=== PATIENT | female | born 1945 | race Caucasian/White ===

== ENCOUNTER 2018-04-10 16:50 | Inpatient (IN) | payer MEDICARE ==
[2018-04-10 17:41] LABS: #Lymphocytes 0.3 thou/uL (1.20-3.40); #Monocytes 0.3 thou/uL (0.11-0.59); #Neutrophils 9.1 thou/uL (1.40-6.50); %Basophils 0.1 % (0.0-1.0); %Eosinophils 0.2 % (0.0-10.0); %Lymphocytes 3.4 % (21.0-51.0); %Monocytes 2.9 % (0.0-10.0); %Neutrophils 93.5 % (42.0-75.0); Hemoglobin 11.2 g/dL (12.0-16.0); Mean Corpuscular HGB CONC 32.7 g/dL (32.0-36.0); Mean Corpuscular Hemoglobin 31.9 pg (27.0-31.0); Mean Corpuscular Volume 97.6 fL (78.0-98.0); Mean Platelet Volume 8.5 fL (7.4-10.4); Platelet Count 154 thou/uL (130-400); RBC Distribution Width 13.5 % (11.5-14.5); Red Blood Cell (RBC) Count 3.52 mill/uL (4.20-5.40); White Blood Cell (WBC) Count 9.8 thou/uL (4.8-10.8)
[2018-04-10] MEDS ORDERED: Ondansetron HCl/PF 4 MG/2 ML Vial ONE (17:46)
[2018-04-10 18:06] LABS: ALT (SGPT) 21 U/L (8-55); AST (SGOT) 36 U/L (5-34); Albumin 3.4 g/dL (3.4-4.8); Alkaline Phosphatase 81 U/L (40-150); Anion Gap 20 mmol/L (10-20); BUN (Urea Nitrogen) 39 mg/dL (9.8-20.1); Bilirubin, Total 0.4 mg/dL (0.2-1.2); Calc. Creatinine Clearance 0 mL/min (70-130); Calcium 7.7 mg/dL (7.8-10.44); Carbon Dioxide 15 mmol/L (23-31); Chloride 107 mmol/L (98-107); Estimated GFR-MDRD 26; Globulin 1.9 g/dL (2.4-3.5); Glucose 120 mg/dL (80-115); Protein, Total 5.3 g/dL (6.0-8.3); Sodium 138 mmol/L (136-145)
[2018-04-10 18:11] LABS: CKMB 3.1 ng/mL (0-6.6); Troponin I Less than 0.010 ng/mL (< 0.028)
--- NOTE | 2018-04-10 19:55 | CT ---
NONCONTRAST ABDOMEN AND PELVIC CT: 04/10/18 Reference made to an 07/10/16. INDICATION: Abdominal pain with hypotension. FINDINGS: There is a moderate sized ventral abdominal wall hernia, developing since prior exam, which contains unopacified bowel with a relative wide neck. There is mesenteric edema of the herniated fat. Hernia i s located just cephalad to the level of the level of the umbilicus at and to the left of midline. Denise id abdominal organs, bowel, lymph nodes, vasculature are limited in assessment on the basis of noncon trast technique. Evidence of prior cholecystectomy. Redemonstration of dystrophic parenchymal calcifi cation of the left kidney and granulomatous calcification of the spleen. No free air. Scattered vascu lar disease is present. There is curvilinear density at the distal colon, of the pelvis, indicating a nastomotic suture line. Correlate with surgical history. Bibasilar atelectasis is present. There is s urgical fixation of the lumbosacral spine, with scattered osseous degenerative change present, region ally. IMPRESSION: Moderate sized, relatively wide necked hernia, just cephalad to the umbilicus, at and to the left of midline containing unopacified bowel and edematous mesenteric fat. Recommend surgical consultation. POS: [facility]
[2018-04-10 20:27] LABS: Lactic Acid 2.1 mmol/L (0.5-2.2)
[2018-04-10] MEDS ORDERED: Acetaminophen 325 MG TAB PO PRN (23:35)
[2018-04-10] MEDS ORDERED: cefTRIAXone\\ROCEPHIN 1 GM in Sodium Chloride 0.9% 100 ML IVPB SCH (23:45)
[2018-04-11] MEDS: Sodium Chloride 0.9% 1,000 ML IV SCH ×2 (01:16→08:36)
[2018-04-11 01:29] VITALS: BMI 31.6
[2018-04-11 04:08] LABS: #Lymphocytes 0.6 thou/uL (1.20-3.40); #Monocytes 0.8 thou/uL (0.11-0.59); #Neutrophils 5.8 thou/uL (1.40-6.50); %Basophils 0.2 % (0.0-1.0); %Eosinophils 0.2 % (0.0-10.0); %Lymphocytes 8.9 % (21.0-51.0); %Monocytes 10.7 % (0.0-10.0); Hemoglobin 10.2 g/dL (12.0-16.0); Mean Corpuscular HGB CONC 32.7 g/dL (32.0-36.0); Mean Corpuscular Hemoglobin 31.9 pg (27.0-31.0); Mean Corpuscular Volume 97.7 fL (78.0-98.0); Mean Platelet Volume 8.3 fL (7.4-10.4); Platelet Count 123 thou/uL (130-400); RBC Distribution Width 13.3 % (11.5-14.5); Red Blood Cell (RBC) Count 3.21 mill/uL (4.20-5.40); White Blood Cell (WBC) Count 7.2 thou/uL (4.8-10.8)
[2018-04-11 04:35] LABS: Anion Gap 10 mmol/L (10-20); BUN (Urea Nitrogen) 40 mg/dL (9.8-20.1); Calc. Creatinine Clearance 62 mL/min (70-130); Calcium 7.2 mg/dL (7.8-10.44); Carbon Dioxide 20 mmol/L (23-31); Chloride 112 mmol/L (98-107); Estimated GFR-MDRD 46; Glucose 100 mg/dL (80-115); Potassium 3.4 mmol/L (3.5-5.1); Sodium 139 mmol/L (136-145)
[2018-04-11] MEDS ORDERED: metroNIDAZOLE 500 MG in Premix Bag 1 BAG IVPB SCH (06:00)
[2018-04-11] MEDS ORDERED: Levothyroxine Sodium 88 MCG TAB PO SCH (06:00)
[2018-04-11] MEDS ORDERED: Enoxaparin Sodium 30 MG/0.3 ML SYRINGE SC SCH (09:00)
[2018-04-11] MEDS ORDERED: Aripiprazole 10 MG TAB PO SCH (09:00)
--- NOTE | 2018-04-11 09:00 | HP ---
PRIMARY CARE PHYSICIAN: Dr. Gavin Ayala. CODE STATUS: FULL CODE. TIME OF EVALUATION: 8:30 p.m. CHIEF COMPLAINT: Abdominal pain. HISTORY OF PRESENT ILLNESS: This is a 72-year-old female patient with a past medical history of colo n cancer, hypothyroidism, hypertension who came to the hospital after having severe and numerous epis odes of diarrhea, with some abdominal cramps, she was diaphoretic, she was found to be hypotensive, s he had dry mouth, no clear triggers, no alleviating factors, the patient reported that she was feelin g well earlier this morning and has no idea what caused the symptoms. We gave 5 liter bolus and bloo d pressure was starting to improve, but the patient has had again large amounts of diarrhea. REVIEW OF SYSTEMS: Constitutional: No fever or chills. The patient does have generalized weakness. Respiratory: No cough, sputum production, shortness of breath. Cardiovascular: No chest pain, pa lpitations, shortness of breath. Gastrointestinal: The patient had nausea, no vomiting, large amoun t of diarrhea, abdominal cramping. Central Nervous System: No dizziness, headache or feeling lighth eaded. Genitourinary: No burning on urination. Extremities: No leg swelling. All other systems w ere reviewed and negative except for the findings mentioned above. PAST MEDICAL HISTORY: Positive for colon cancer, hernia, endocrine disease, hypothyroidism, hyperten alaina. PAST SURGICAL HISTORY: Hysterectomy, gastric bypass, left hand surgery, left knee. PSYCHIATRIC HISTORY: Includes depression. SOCIAL HISTORY: No smoking history. No alcohol, no drugs. KNOWN ALLERGIES: No known drug allergies. REPORTED MEDICATIONS: Levothyroxine, lisinopril, amitriptyline, sertraline, Abilify, pantoprazole. PHYSICAL EXAMINATION: VITAL SIGNS: On presentation, blood pressure 65/41, with a heart rate 96, respiratory rate was 16. Pain was 4/10. Oxygen saturation 95. The blood pressure has recovered and has been in the 90s after 5 liter bolus. GENERAL APPEARANCE: Patient is alert, oriented, not in any acute distress. HEENT: Eyes: Normal conjunctivae. Very dry oral mucosa. Anicteric NECK: No JVD. RESPIRATORY: Bilateral air entry. No rales, no wheezing. Symmetric expansion. CARDIOVASCULAR: Normal rate, regular rhythm. No murmurs, no gallop, no edema. ABDOMEN: Soft, normal bowel sounds. MUSCULOSKELETAL: Baseline range of motion and strength. No tenderness. SKIN: Warm and intact. No pallor, no rash or redness. NEUROLOGIC: Baseline sensory. No evidence of any new focal weakness. Baseline speech. Cranial ner ve seems to be intact. PSYCHIATRIC: The patient is in a good mood. No anxiety, oriented. No optimal judgment. IMAGING: EKG was reviewed. The patient has normal sinus rhythm at a rate of 93, SC 150, QRS 88, QT corrected 477. Abdomen and pelvis CT was done, moderate size, relatively wide neck hernia just cepha lad to the umbilicus into the left of midline complaining unopacified bowel and edematous mesenteric fat, recommend surgical consultation. LABORATORY DATA: Reviewed. The patient has a white count 9.8, hemoglobin 11.2, MCV 97, platelet cou nt was normal. Chemistry: Sodium 138, potassium 4.0, chloride 107, carbon dioxide was 15 with a nor mal gap. BUN 39 with a creatinine of 1.88, which has improved after hydration to 1.16. GFR 26, gluc ose 120. Lactic acid within normal twice. Calcium 7.7. AST 36. ASSESSMENT AND PLAN: The patient will be placed in the hospital for the following medical problems. 1. Severe dehydration. Patient has very dry mucosa, hypotension, has had some very large diarrhea m ultiple times during the day, unclear etiology, we will continue to hydrate aggressively. The patien t feels much better after radiation, blood pressure was recovered. 2. Acute gastroenteritis, unclear etiology, the patient has been started on antibiotics, we will con tinue to hydrate aggressively. 3. Umbilical hernia, seems to have some edematous mesenteric fat, Surgery has been consulted, Dr. Yoder will help us with our patient, we appreciate his help, we will follow recommendations. 4. Hypotension secondary to dehydration. The patient was hypovolemic on presentation, has recovered with aggressive hydration. 5. Deep venous thrombosis prophylaxis. 6. Hypothyroidism, continue hormone replacement. 7. Hypertension, we will reconcile home medications, we will not treat aggressively given presentati on with hypotension.
[2018-04-11 11:08] VITALS: TEMP 98.1
[2018-04-11] MEDS ORDERED: Potassium Chloride 20 MEQ TAB PO SCH (11:15)
--- NOTE | 2018-04-11 11:30 | DIS ---
DATE OF ADMISSION: 04/10/2018 DATE OF DISCHARGE: 04/11/2018 PRIMARY CARE PROVIDER: Gavin Ayala M.D. DISCHARGE DIAGNOSES: 1. Hypotension. 2. Severe dehydration. 3. Acute gastroenteritis. 4. Umbilical hernia. 5. Acute renal failure. CONDITION OF PATIENT ON THE DAY OF DISCHARGE: Stable. I assessed Ms. Baker on the day of disch arge. She denies any chest pain or shortness of breath. She denies any lightheadedness. She denies any abdominal pain. Vital signs are stable. S1 and S2 are heard, regular. Lungs are clear to ausc ultation bilaterally. DISCHARGE MEDICATIONS: Azithromycin 500 mg daily for 3 days, Tylenol #3 p.r.n., amitriptyline 100 mg at bedtime, Abilify 5 mg in the morning, levothyroxine 88 mcg daily, lisinopril 20 mg daily, Protoni x 40 mg daily and Zoloft 100 mg daily. HOSPITAL COURSE: Ms. Baker is a pleasant 72-year-old lady who was admitted to [facility] on 04/10/2018. Please refer to Dr. Kang's history and physical note dated 04/11 for further details regarding this admission. She received aggressive intravenous hydration fo r hypotension. She was also started on empiric antibiotics for suspected infectious diarrhea. Her b lood pressure improved. Creatinine improved to 1.16 on the day of discharge from 1.88 on the day of admission. Stool occult blood was negative. Clostridium difficile test was negative. Campylobacter antigen and Shiga toxin test were negative. She also had a rapid parasite screen, which was negativ e for Giardia antigen and cryptosporidium antigen. She was seen by General Surgery Service. This was in regards to her umbilical hernia. No surgery wa s recommended. She is being discharged home in a stable condition. She has been advised to follow u p with her primary care provider in 3-5 days. She is also advised to return to work as tolerated on 04/12/2018. Many thanks for allowing me to participate in your patient's care. Please feel free to contact me wi th any questions or concerns. LABORATORY DATA: On the day of discharge, she has sodium 139, potassium 3.4, which is being replaced , blood urea nitrogen 40, creatinine 1.16, for which she is advised to maintain good oral intake, whi te count 7,200, hemoglobin 10.2, and platelet count 123,000. DISCHARGE DESTINATION: Home. TOTAL AMOUNT OF TIME SPENT COORDINATING THIS DISCHARGE: 33 minutes.
[2018-04-11 12:19] VITALS: BP 139/67
--- NOTE | 2018-04-11 16:51 | HP ---
HISTORY OF PRESENT ILLNESS: Marita Baker is a 72-year-old female, who has had past Peña-en -Y gastric bypass, mesh repair of incisional hernia by Dr. Crowe. She was working at [employer] d experienced extreme weakness about 4-5 hours after taking lisinopril. After this event, she was tr ansported to the hospital, evaluated in the emergency room, noted to be hypotensive, pressure in the 70s to 80s. She is given fluids and admitted by Hospitalist ICU. She was noted to have an incisiona l hernia, which she has had for over a year. This is reducible. She has been followed by Dr. Reena raman for this. The hernia was reducible on exam and seen on CAT scan and not felt to be a problem and s he was admitted to the Hospitalist Service where she was hydrated. By the time I am seeing her, she is feeling better, hungry, never having had any nausea or vomiting. Her blood pressure is normal. I have discussed with Dr. Sagastume and he has felt that her symptoms were probably related to taking her lisinopril. She probably should discontinue this and follow up with her primary care physician as f ar as need for this medication or any other medications. MEDICATIONS: At home, sertraline 100 mg a.m., Protonix 40 mg a day, levothyroxine 88 mcg a day, azit hromycin 500 mg a day, Abilify 5 mg a.m., amitriptyline 10 mg at bedtime, Tylenol with Codeine p.r.n. TOBACCO/ALCOHOL: None. ALLERGIES: None. PAST SURGICAL HISTORY: ____, revision of her gastrojejunostomy for a perforated gastrojejunal ulcer. G-tube placement temporarily, subsequently removed. Upper endoscopies by Dr. Dowd. 09/2009, inci sional hernia repair with mesh 20 x 15 cm Porcine. 09/05/2009, laparoscopic cholecystectomy. 2015, Peña-en-Y gastric bypass, laparoscopic. Appendectomy, age 29. Removal of foot tumor and hyste rectomy. PAST MEDICAL HISTORY: Hypertension, depression, anxiety. REVIEW OF SYSTEMS: Ten-point noncontributory. SOCIAL HISTORY: Noncontributory. PHYSICAL EXAMINATION: VITAL SIGNS: 112/70, respiratory rate 20, afebrile, ____ degrees. HEAD, EARS, EYES, NOSE, AND THROAT: Unremarkable. LUNGS: Clear to auscultation. CARDIAC: Regular rate and rhythm without murmur, rub, or gallop. ABDOMEN: Soft. Supraumbilical incisional hernia midline, approximately 8 cm diameter defect, easily reducible, nontender. EXTREMITIES: Unremarkable. LABORATORY: White count 7, hemoglobin 10, sodium 139, potassium 3.4, BUN 40, creatinine 1.16. Liver function tests normal. ASSESSMENT AND PLAN: 1. Incisional hernia, asymptomatic. She has had this over a year. This is [facility]. We would not recommend intervention at this time. She will follow up with Dr. Crowe . 2. Recent episode of hypotension. I have discussed with Dr. Sagastume, probably related to lisinopril. She will hold her lisinopril. Follow up with her primary care physician and adjust her medications. 3. Bariatric surgery status. 4. Incisional hernia.
--- NOTE | 2018-04-11 20:36 | ADD-CON ---
DATE OF CONSULTATION: 04/11/2018 This is a 50-minute consult, greater than 50% of the time was spent in the unit coordinating care.
[2018-04-11] MEDS ORDERED: Amitriptyline HCl 100 MG TAB PO SCH (21:00)
--- NOTE | 2018-04-11 22:56 | CON ---
DATE OF CONSULTATION: 04/11/2018 HISTORY OF PRESENT ILLNESS: Marita Baker is a pleasant woman, who is 72 years of age. She said she was at work yesterday and became diaphoretic, felt like she was going to faint. The admission history and physical says she has had diarrhea prior to admission. She denies having nausea, vomiting or diarrhea prior to admission. In the emergency room, she had a low blood pressure. She was hydrated and says she feels back to normal now. She denies fever, chills or sweats. She took no new medicines. She does not use drugs. She did not accidentally take any extra blood pressure pills. She is on lisinopril 20 mg a day. She denies having fever or eating something different. She was admitted with a diagnosis of abdominal pain, but she denied having any significant pain to me. PAST MEDICAL HISTORY: Remarkable for colon cancer, hernia, hypothyroidism, hypertension, hysterectomy, gastric bypass surgery, hand surgery, and knee surgery. SOCIAL HISTORY: She is a nonsmoker, nondrinker, nondrug user. FAMILY HISTORY: Non contributory. ALLERGIES: She has no drug allergies. MEDICATIONS: Prior to admission, she was on Synthroid, lisinopril, Elavil, Zoloft, Abilify, and Protonix. REVIEW OF SYSTEMS: 10 point system review completed; otherwise negative. PHYSICAL EXAMINATION: GENERAL: She is in no distress. She actually said she was well and wanted to go home. VITAL SIGNS: She is afebrile, heart rate was 90, respiratory rate 18-20, oximetry is 100% on room air, and blood pressure 170/72. HEENT: Pupils are equal. Sclerae is anicteric. Extraocular movements are full. NECK: Supple, no lymphadenopathy. LUNGS: Completely clear. HEART: Regular rhythm, no S3. No gallop, no murmur. ABDOMEN: Soft and nontender. EXTREMITIES: She has a very large reducible ventral hernia, it is old by her history. EXTREMITIES: Without clubbing, cyanosis, or edema. NEUROLOGIC: Nonfocal. LABORATORY DATA: White count is normal, hemoglobin was 10.2, platelets 123,000. Sodium 139, potassium 3.4, chloride 112, bicarbonate 20, BUN 40, creatinine 1.16 , on admission. IMPRESSION: Intravascular volume depletion combined with the effects of her antihypertensive. Cultures of her blood were not done in the emergency room from what I can tell. Given that she felt normal. It is reasonable for her to be discharged and followed closely by her primary care physician. I did recommend that she not take her lisinopril. I also recommended that she vegetable picker a blood pressure cuff , to keep a dairy of her blood pressures twice a day and then follow up with her primary care physician within the next week to 10 days. PRIMARY CARE PHYSICIAN. She says that Dr. Ayala needed in the future. This is a 50 minute consult with greater than 50% of time spent on unit with coordination of care. YUDITH
== END 2018-04-11 13:38 | disposition home or self-care (01) | DRG 641 ==
LOC: ERS 16:50 → IMCU/EMU 21:30 → OBSVTOIN 21:30
PROVIDERS: ADMIT Hospitalist; ATTEND Hospitalist
DX: E86.0 Dehydration (principal); N17.9 Acute kidney failure, unspecified; I95.9 Hypotension, unspecified; K43.2 Incisional hernia without obstruction or gangrene; Z98.84 Bariatric surgery status; K52.9 Noninfective gastroenteritis and colitis, unspecified; K42.9 Umbilical hernia without obstruction or gangrene; E03.9 Hypothyroidism, unspecified
CPT/HCPCS: 36415; 74176; 80048; 80053; 82274; 82553; 83605; 84484; 85025; 87045; 87046; 87077; 87186; 87324; 87328; 87329; 87449; 87899; 93005; 96361; 96374; J0696; J1650; J2405; J7050

== ENCOUNTER 2018-08-19 09:35 | Inpatient (IN) | payer MEDICARE ==
[2018-08-18 08:50] VITALS: BMI 33.3
[2018-08-19] MEDS ORDERED: Fentanyl 100 MCG/2 ML VIAL ONE (10:17)
[2018-08-19] MEDS ORDERED: Midazolam HCl 2 mg/2 ml Vial ONE ×2 (10:17→12:05)
[2018-08-19] MEDS ORDERED: Dexamethasone 4 mg/ml Vial ONE (10:29)
[2018-08-19 11:18] LABS: Anion Gap 13 mmol/L (10-20); BUN (Urea Nitrogen) 20 mg/dL (9.8-20.1); Calc. Creatinine Clearance 88 mL/min (70-130); Calcium 9.3 mg/dL (7.8-10.44); Carbon Dioxide 27 mmol/L (23-31); Chloride 104 mmol/L (98-107); Estimated GFR-MDRD 67; Glucose 104 mg/dL (83-110); Potassium 3.8 mmol/L (3.5-5.1); Sodium 140 mmol/L (136-145)
[2018-08-19] MEDS ORDERED: CEFAZOLIN 2 GM/50 ML BAG ONE (11:49)
[2018-08-19] MEDS ORDERED: Fentanyl 250 MCG/5 ML VIAL ONE (12:08)
[2018-08-19] MEDS ORDERED: Ondansetron PF 4 MG/2 ML Vial IV PRN (13:18)
[2018-08-19] MEDS ORDERED: Fentanyl 100 MCG/2 ML VIAL SLOW IVP PRN (13:18)
[2018-08-19] MEDS ORDERED: Ondansetron PF 4 MG/2 ML Vial ONE ×2 (13:28→13:38)
[2018-08-19] MEDS ORDERED: PROPOFOL 200 MG/20 ML VIAL ONE (13:28)
[2018-08-19] MEDS ORDERED: Lidocaine 1% PF 5 ML VIAL ONE (13:28)
[2018-08-19] MEDS ORDERED: Ketorolac Tromethamine 30 MG/ML VIAL ONE ×2 (13:28→13:38)
[2018-08-19] MEDS ORDERED: Communication Order-Pharmacy FS SCH (13:30)
[2018-08-19] MEDS ORDERED: Promethazine HCl 25 MG/ML VIAL SLOW IVP PRN (13:50)
[2018-08-19] MEDS ORDERED: Ondansetron HCl/PF 4 MG/2 ML Vial IVP PRN (13:50)
[2018-08-19] MEDS ORDERED: Promethazine HCl 25 MG/ML VIAL IM PRN (13:50)
[2018-08-19] MEDS: HYDROcodone/Acetaminophen 5/325 mg Tablet PO PRN (15:30)
--- NOTE | 2018-08-19 15:59 | RAD ---
RADIOGRAPH LEFT ANKLE 2 VIEWS: 08/19/18 Attention Ashli in Billing: This is a two view study, not three view. HISTORY: 74-year-old male with traumatic ankle fracture. COMPARISON: 07/28/18. FINDINGS: Fluoroscopic spot images obtained with C-arm in the OR demonstrate interval placement of a metallic p late along the medial aspect of the distal tibial metaphysis, anchored to the bone by four screws. Al ignment remains anatomical. Ankle mortise remains congruent. IMPRESSION: Ongoing open reduction internal fixation of nondisplaced, acute, traumatic medial distal tibial metap hyseal fracture with intraarticular component of fracture. POS: [facility]
--- NOTE | 2018-08-19 16:54 | OP ---
DATE OF PROCEDURE: 08/19/2018 PROCEDURE PERFORMED: Open reduction and internal fixation of left medial malleolus ankle fracture. PREOPERATIVE DIAGNOSIS: Left medial malleolus ankle fracture with displacement. POSTOPERATIVE DIAGNOSIS: Left medial malleolus ankle fracture with displacement. COMPLICATIONS: None. ESTIMATED BLOOD LOSS: 50 mL. LUGGAGE REPAIRER: Cari Griggs PA-C. IMPLANTS: Synthes one-third tubular plate, 5 hole with multiple nonlocking screws were utilized. INDICATIONS: Ms. Mcmahon is a 73-year-old female, who fell several weeks ago. She initially had a nondisplaced medial malleolus fracture. Unfortunately, she had to bear weight on this for balance and this has become a displaced fracture. She was indicated for open reduction and internal fixation to restore alignment and promote healing. Risks have been reviewed in detail. She has elected to proceed with the operation. DESCRIPTION OF PROCEDURE: Ms. Griffith was identified in the preoperative holding area. Her correct extremity was marked. She was carried to the operating room. She was positioned supine. General anesthesia was induced. A multidisciplinary time-out was performed. The left lower extremity was prepped and draped in sterile fashion. We began the procedure with a medial approach to the medial malleolus. We dissected down through the subcutaneous tissues to the fascia, which was opened. We exposed the underlying fracture. At this point, the fracture was reduced using an elevator after cleaning the fracture and removing fibrocartilage. We checked reduction on x-ray after K-wire placement. We then applied a one-third tubular buttress plate. Two screws were placed proximally and two through the fragment. This reduced the fracture fragment well and held in its position. There were no complications. We took final images. We thoroughly irrigated. We then closed with 0 Vicryl suture, 2-0 Vicryl suture, prem for the skin, and a splint was placed. Job ID: [id number]
[2018-08-19] MEDS ORDERED: Bupivacaine HCl 0.5%/Epinephrine 1:200,000/PF 30 ml Vial ONE (19:14)
[2018-08-19] MEDS: Amitriptyline HCl 100 MG TAB PO SCH (20:57)
[2018-08-19] MEDS: CEFAZOLIN 2 GM/50 ML BAG IVPB SCH (20:58)
[2018-08-19] MEDS: Aspirin 81 mg Enteric Coated Tablet PO SCH (20:58)
[2018-08-20] MEDS: Levothyroxine Sodium 88 MCG TAB PO SCH (04:56)
[2018-08-20] MEDS: CEFAZOLIN 2 GM/50 ML BAG IVPB SCH (04:56)
[2018-08-20] MEDS ORDERED: Prevnar 13-Val Conj/PF 0.5 ML SYRINGE IM ONE (09:00)
[2018-08-20] MEDS: Aspirin 81 mg Enteric Coated Tablet PO SCH ×2 (09:23→20:46)
[2018-08-20] MEDS: Lisinopril 20 MG TAB PO SCH (09:23)
[2018-08-20] MEDS: Aripiprazole 10 MG TAB PO SCH (09:24)
[2018-08-20] MEDS: Multivit, Therapeutic 1 TAB PO SCH (09:24)
[2018-08-20] MEDS: HYDROcodone/Acetaminophen 5/325 mg Tablet PO PRN ×3 (09:25→20:46)
[2018-08-20] MEDS: traMADol HCl 50 MG TAB PO PRN ×2 (12:51→20:46)
[2018-08-20] MEDS: Amitriptyline HCl 100 MG TAB PO SCH (20:46)
[2018-08-21] MEDS: traMADol HCl 50 MG TAB PO PRN (03:28)
[2018-08-21] MEDS: HYDROcodone/Acetaminophen 5/325 mg Tablet PO PRN ×5 (03:28→21:07)
[2018-08-21] MEDS: Levothyroxine Sodium 88 MCG TAB PO SCH (06:07)
[2018-08-21] MEDS: Acetaminophen 325 MG TAB PO PRN (06:07)
[2018-08-21] MEDS: Aspirin 81 mg Enteric Coated Tablet PO SCH ×2 (08:38→20:16)
[2018-08-21] MEDS: Aripiprazole 10 MG TAB PO SCH (08:38)
[2018-08-21] MEDS: Lisinopril 20 MG TAB PO SCH (08:39)
[2018-08-21] MEDS: Multivit, Therapeutic 1 TAB PO SCH (08:39)
[2018-08-21] MEDS: Amitriptyline HCl 100 MG TAB PO SCH (20:17)
[2018-08-22] MEDS: HYDROcodone/Acetaminophen 5/325 mg Tablet PO PRN ×5 (04:15→21:06)
[2018-08-22] MEDS: Levothyroxine Sodium 88 MCG TAB PO SCH (05:51)
[2018-08-22] MEDS: Aspirin 81 mg Enteric Coated Tablet PO SCH ×2 (07:54→21:06)
[2018-08-22] MEDS: Lisinopril 20 MG TAB PO SCH (07:54)
[2018-08-22] MEDS: Multivit, Therapeutic 1 TAB PO SCH (07:55)
[2018-08-22] MEDS: Aripiprazole 10 MG TAB PO SCH (07:55)
[2018-08-22] MEDS: Amitriptyline HCl 100 MG TAB PO SCH (21:06)
[2018-08-23] MEDS: Levothyroxine Sodium 88 MCG TAB PO SCH (05:27)
[2018-08-23] MEDS: HYDROcodone/Acetaminophen 5/325 mg Tablet PO PRN ×5 (05:29→21:31)
[2018-08-23] MEDS: Aripiprazole 10 MG TAB PO SCH (07:51)
[2018-08-23] MEDS: Multivit, Therapeutic 1 TAB PO SCH (07:53)
[2018-08-23] MEDS: Lisinopril 20 MG TAB PO SCH (07:53)
[2018-08-23] MEDS: Aspirin 81 mg Enteric Coated Tablet PO SCH ×2 (07:53→21:31)
[2018-08-23] MEDS: Amitriptyline HCl 100 MG TAB PO SCH (21:31)
[2018-08-24] MEDS: Levothyroxine Sodium 88 MCG TAB PO SCH (05:06)
[2018-08-24] MEDS: HYDROcodone/Acetaminophen 5/325 mg Tablet PO PRN ×3 (05:06→14:42)
[2018-08-24 08:11] VITALS: TEMP 98.4
[2018-08-24] MEDS: Acetaminophen 325 MG TAB PO PRN ×2 (08:43→16:06)
[2018-08-24] MEDS: traMADol HCl 50 MG TAB PO PRN ×2 (08:43→16:07)
[2018-08-24] MEDS: Multivit, Therapeutic 1 TAB PO SCH (08:44)
[2018-08-24] MEDS: Aripiprazole 10 MG TAB PO SCH (08:44)
[2018-08-24] MEDS: Lisinopril 20 MG TAB PO SCH (08:44)
[2018-08-24] MEDS: Aspirin 81 mg Enteric Coated Tablet PO SCH (08:44)
[2018-08-24 12:16] VITALS: BP 127/84
== END 2018-08-24 16:15 | disposition home or self-care (01) | DRG 494 ==
LOC: SDC 09:35 → SURG B 13:18
PROVIDERS: ADMIT Orthopaedic Surgery; ATTEND Orthopaedic Surgery
PROC: 0QSH04Z Reposition Left Tibia with Internal Fixation Device, Open Approach (ICD-10-PCS; principal; 2018-08-19)
DX: S82.52XA Displaced fracture of medial malleolus of left tibia, initial encounter for closed fracture (principal); M19.90 Unspecified osteoarthritis, unspecified site; F32.9 Major depressive disorder, single episode, unspecified; W19.XXXA Unspecified fall, initial encounter; Y92.9 Unspecified place or not applicable; Z87.891 Personal history of nicotine dependence; Z85.038 Personal history of other malignant neoplasm of large intestine; Z98.84 Bariatric surgery status; Z96.653 Presence of artificial knee joint, bilateral; Z81.8 Family history of other mental and behavioral disorders; Z83.3 Family history of diabetes mellitus; Z82.49 Family history of ischemic heart disease and other diseases of the circulatory system; Z80.0 Family history of malignant neoplasm of digestive organs
CPT/HCPCS: 76001; 80048; 90471; 90670; C1713; G0009; G8978-GP-CL; G8979-GP-CJ; J0670; J1100; J1885; J2001; J2250; J2405; J2704; J3010

== ENCOUNTER 2018-11-05 13:03 | Outpatient (CLI) | payer MEDICARE ==
--- NOTE | 2018-11-05 15:20 | BD ---
DEXA BONE DENSITY STUDY: HISTORY: Postmenopausal. FINDINGS: BMD (g/mc2) T-SCORE RIGHT FEMORAL NECK 0.634 -1.9 TOTAL 0.881 -0.5 LEFT FEMORAL NECK 0.518 -3.0 TOTAL 0.866 -0.6 IMPRESSION: 1. Osteoporosis of the left femoral neck. 2. Osteopenia of the right femoral neck. POS: [facility]
== END 2018-11-05 13:04 | disposition home or self-care (01) ==
LOC: BICMAMMO 13:03
PROVIDERS: ATTEND Family Medicine
DX: Z78.0 Asymptomatic menopausal state (principal); M81.0 Age-related osteoporosis without current pathological fracture; M85.851 Other specified disorders of bone density and structure, right thigh
CPT/HCPCS: 77080

== ENCOUNTER 2019-01-04 05:58 | Outpatient (CLI) | payer MEDICARE ==
[2019-01-04 17:50] LABS: #Lymphocytes 1.4 thou/uL (1.20-3.40); #Monocytes 0.3 thou/uL (0.11-0.59); #Neutrophils 2.3 thou/uL (1.40-6.50); %Basophils 1.1 % (0.0-1.0); %Eosinophils 0.9 % (0.0-10.0); %Monocytes 8.3 % (0.0-10.0); %Neutrophils 55.7 % (42.0-75.0); Hemoglobin 11.9 g/dL (12.0-16.0); Mean Corpuscular HGB CONC 31.1 g/dL (32.0-36.0); Mean Corpuscular Hemoglobin 30.6 pg (27.0-31.0); Mean Corpuscular Volume 98.3 fL (78.0-98.0); Mean Platelet Volume 8.2 fL (7.4-10.4); Platelet Count 221 thou/uL (130-400); RBC Distribution Width 12.6 % (11.5-14.5); White Blood Cell (WBC) Count 4.1 thou/uL (4.8-10.8)
[2019-01-04 18:19] LABS: Anion Gap 14 mmol/L (10-20); BUN (Urea Nitrogen) 22 mg/dL (9.8-20.1); Calc. Creatinine Clearance 0 mL/min (70-130); Calcium 8.7 mg/dL (7.8-10.44); Carbon Dioxide 24 mmol/L (23-31); Chloride 105 mmol/L (98-107); Estimated GFR-MDRD 58; Glucose 92 mg/dL (83-110); Potassium 5.3 mmol/L (3.5-5.1); Sodium 138 mmol/L (136-145)
== END 2019-01-04 05:59 | disposition home or self-care (01) ==
LOC: LABBT 05:58
PROVIDERS: ATTEND Surgery
DX: Z01.818 Encounter for other preprocedural examination (principal); K43.2 Incisional hernia without obstruction or gangrene
CPT/HCPCS: 80048; 82607; 84425; 85025; 93005; 93010

== ENCOUNTER 2019-01-14 09:45 | Observation (INO) | payer MEDICARE ==
[2019-01-04 16:22] VITALS: BMI 33.3
[2019-01-14] MEDS ORDERED: Bupivacaine/Epinephrine 0.25% 30 ML VIAL ONE (11:12)
[2019-01-14] MEDS ORDERED: Fentanyl 100 MCG/2 ML VIAL ONE ×3 (11:31→13:55)
[2019-01-14] MEDS ORDERED: HYDROmorphone 2 MG/ML VIAL ONE (13:27)
[2019-01-14] MEDS ORDERED: Promethazine HCl 25 MG/ML VIAL ONE (13:32)
[2019-01-14] MEDS ORDERED: diphenhydrAMINE 50 MG/ML VIAL IM PRN ×2 (13:37→13:39)
[2019-01-14] MEDS ORDERED: Zolpidem Tartrate 5 MG TAB PO PRN ×2 (13:37→13:39)
[2019-01-14] MEDS ORDERED: Ondansetron PF 4 MG/2 ML Vial IVP PRN ×3 (13:37→13:46)
[2019-01-14] MEDS ORDERED: Ondansetron HCl/PF 4 MG/2 ML Vial IVP PRN (13:37)
[2019-01-14] MEDS ORDERED: HYDROmorphone 2 MG/ML VIAL SLOW IVP PRN (13:37)
[2019-01-14] MEDS ORDERED: diphenhydrAMINE 25 MG CAP PO PRN ×2 (13:37→13:39)
[2019-01-14] MEDS ORDERED: PACU-Morphine 4MG/ML VIAL SLOW IVP PRN (13:37)
[2019-01-14] MEDS ORDERED: diphenhydrAMINE 50 MG/ML VIAL IVP PRN ×2 (13:37→13:39)
[2019-01-14] MEDS ORDERED: Promethazine HCl 25 MG/ML VIAL SLOW IVP PRN (13:37)
[2019-01-14] MEDS ORDERED: Naloxone HCl 0.4 mg/ml Vial IV PRN ×2 (13:37→13:39)
[2019-01-14] MEDS ORDERED: Promethazine HCl 25 MG/ML VIAL IM PRN ×4 (13:37→13:46)
[2019-01-14] MEDS ORDERED: fentaNYL Citrate/PF 2,000 MCG in Sodium Chloride 0.9% 60 ML IV PRN (13:39)
[2019-01-14] MEDS ORDERED: Communication Order-Pharmacy FS SCH ×2 (13:45)
[2019-01-14] MEDS ORDERED: hydrALAZINE 20 MG/ML VIAL SLOW IVP PRN (13:46)
[2019-01-14] MEDS ORDERED: Dextrose 5% in Water 1,000 ML IV PRN (13:46)
[2019-01-14] MEDS ORDERED: Dextrose 50% Abboject 50 ML SYRINGE SLOW IVP PRN (13:46)
[2019-01-14] MEDS ORDERED: Dexamethasone 4 mg/ml Vial ONE (14:19)
[2019-01-14] MEDS: Sodium Chloride 0.9% 1,000 ML IV SCH (16:15)
[2019-01-14] MEDS ORDERED: Lidocaine 1% PF 5 ML VIAL ONE (17:20)
[2019-01-14] MEDS ORDERED: Glycopyrrolate 0.2 MG/ML 5 ML SYRINGE ONE (17:20)
[2019-01-14] MEDS ORDERED: PHENYLEPHRINE-NS 100 MCG/ML 10 ML SYRINGE ONE (17:20)
[2019-01-14] MEDS ORDERED: PROPOFOL 200 MG/20 ML VIAL ONE (17:20)
[2019-01-14] MEDS ORDERED: Rocuronium Bromide 10 MG/ML (10ML VIAL) ONE (17:20)
[2019-01-14] MEDS ORDERED: Dexamethasone 20 MG/5 ML VIAL ONE (17:20)
[2019-01-14] MEDS ORDERED: Ketorolac Tromethamine 30 MG/ML VIAL ONE (17:20)
[2019-01-14] MEDS ORDERED: ePHEDrine 50 MG/ML VIAL ONE (17:20)
[2019-01-14] MEDS ORDERED: Ondansetron PF 4 MG/2 ML Vial ONE (17:20)
--- NOTE | 2019-01-14 17:42 | OP ---
DATE OF PROCEDURE: 01/14/2019 PREOPERATIVE DIAGNOSIS: Large incisional hernia. POSTOPERATIVE DIAGNOSIS: Large incisional hernia. PROCEDURES PERFORMED: 1. Incisional hernia repair with mesh, Ventralex 10 x 15 cm. 2. Right and left component separation with localized muscle flap with local muscle transfer, placement of abdominal drain x2. ANESTHESIA: General. ESTIMATED BLOOD LOSS: 50 mL. COMPLICATIONS: None. DESCRIPTION OF PROCEDURE: The patient was taken to the operating room and laid supine on the operating room table. After general anesthetic was obtained, a Llanes was placed. The abdomen was prepped and draped in a sterile fashion. The previous midline incision was reopened. The wide scar was excised. Flaps were raised along the level of the fascia laterally, superior, and inferiorly. Lateral to the furthest edge of the bed, superior to the level of the rib, inferior to the groins right on top of the muscle. The hernia sac was entered very carefully and the hernia sac debrided at the level of the fascial defect. There was a greater than 6 cm fascial defect in the middle. There was a second small fascial defect up high near the xiphoid. A Ventralex ST small mesh was brought into the sterile field and placed in the upper hole and the small opening was able to be completely closed with this [address] It was sewn in place using Prolene's. Next, the component separation was performed by incising 1 cm lateral to the lateral edge of the rectus. The anterior fascia was opened superior to the rib inferior to the level of the groin. This allowed the bilateral rectus muscle to come back to midline without any tension. A 10 x 15 cm mesh was brought into the sterile field. It was laid in an oriented and a horizontal fashion to completely cover the hole on the back side with good overlap. It was sewn via transfascial sutures of Prolene to the posterior fascia. The anterior fascia was able to be approximated in the midline without any undue tension. Meticulous hemostasis was obtained. The wound was irrigated. Two 19 drains were brought out through stab incision, sewn in place using silk and connected to bulbs for postop drainage. The incisions irrigated. There was no ongoing bleeding. The wounds were closed using 3-0 Vicryl, 4-0 Monocryl, and Dermabond. The patient was sent to Recovery in stable condition. All instrument counts, needle counts, and lap counts were correct. Job ID: [id number]
[2019-01-14] MEDS: Amitriptyline HCl 100 MG TAB PO SCH (19:46)
[2019-01-14] MEDS: Acetaminophen 1,000 MG in Premix Bag 1 BAG IVPB SCH (19:48)
[2019-01-14] MEDS: Amlodipine 5 MG TAB PO SCH (23:43)
[2019-01-15] MEDS: Acetaminophen 1,000 MG in Premix Bag 1 BAG IVPB SCH ×2 (02:11→09:26)
[2019-01-15] MEDS: Levothyroxine Sodium 88 MCG TAB PO SCH (07:14)
[2019-01-15] MEDS: Sodium Chloride 0.9% 1,000 ML IV SCH ×2 (07:14→20:34)
[2019-01-15] MEDS: Lisinopril/Hydrochlorothiazide 20/25 mg Tablet PO SCH (09:18)
[2019-01-15] MEDS: Aripiprazole 10 MG TAB PO SCH (09:18)
[2019-01-15] MEDS: Acetaminophen 500 MG TAB PO SCH ×3 (12:04→23:09)
[2019-01-15] MEDS: Amitriptyline HCl 100 MG TAB PO SCH (20:33)
[2019-01-15] MEDS: Amlodipine 5 MG TAB PO SCH (20:35)
--- NOTE | 2019-01-15 23:40 | PRG ---
DATE OF SERVICE: 01/15/2019 SUBJECTIVE: This is a 73-year-old female, postop day #1 with large incisional hernia repair with mesh, right and left component separation with localization muscle flap with local muscle transfer and placement of abdominal drain x2. The patient had no overnight events. The patient remains on a fentanyl TRAFFIC WORKFORCE REPRESENTATIVE pump and pain is adequately controlled. The patient is passing gas and tolerating a full liquid diet. OBJECTIVE: VITAL SIGNS: Blood pressure 116/72, temperature 98.2, pulse 96, respirations 16, and SpO2 of on room air. GENERAL: The patient is awake and alert, in no distress. HEENT: Unremarkable. Mucous membranes are moist. RESPIRATORY: Equal chest rise and fall. No respiratory distress. CARDIOVASCULAR: Regular rate and rhythm. ABDOMEN: Soft and nondistended. Drains in place. NEUROLOGIC: No focal deficit. LABORATORY DATA: There are no labs to evaluate today. IMPRESSION: Postoperative day #1, large incisional hernia repair with mesh. PLAN: Continue full liquid diet and add Ensure. We will place a rehab screen. We will place the patient on p.o. pain medications and wean off TRAFFIC WORKFORCE REPRESENTATIVE. The patient was examined with Dr. Jimenez during morning rounds. Job ID: [id number]
[2019-01-16] MEDS: Acetaminophen 500 MG TAB PO SCH ×4 (05:14→21:02)
[2019-01-16] MEDS: Levothyroxine Sodium 88 MCG TAB PO SCH (05:45)
[2019-01-16] MEDS: Aripiprazole 10 MG TAB PO SCH (09:11)
[2019-01-16] MEDS: Lisinopril/Hydrochlorothiazide 20/25 mg Tablet PO SCH (09:11)
[2019-01-16] MEDS: Sodium Chloride 0.9% 1,000 ML IV SCH (09:12)
[2019-01-16] MEDS ORDERED: traMADol HCl 50 MG TAB PO PRN (10:31)
[2019-01-16] MEDS ORDERED: Cyclobenzaprine 10 MG TAB PO PRN (10:33)
[2019-01-16] MEDS ORDERED: Ibuprofen 600 MG TAB PO SCH ×2 (10:45→14:00)
[2019-01-16] MEDS ORDERED: traMADol HCl 50 MG TAB PO SCH ×2 (10:45→18:00)
[2019-01-16 11:15] LABS: Anion Gap 9 mmol/L (10-20); BUN (Urea Nitrogen) 15 mg/dL (9.8-20.1); Calc. Creatinine Clearance 91 mL/min (70-130); Calcium 8.4 mg/dL (7.8-10.44); Carbon Dioxide 27 mmol/L (23-31); Chloride 107 mmol/L (98-107); Estimated GFR-MDRD 70; Glucose 70 mg/dL (83-110); Potassium 4.1 mmol/L (3.5-5.1); Sodium 139 mmol/L (136-145)
[2019-01-16] MEDS ORDERED: Morphine 2 MG/ML SYRINGE SLOW IVP PRN (13:07)
[2019-01-16] MEDS ORDERED: HYDROcodone/Acetaminophen 7.5/325 mg Tablet PO PRN (13:51)
--- NOTE | 2019-01-16 13:57 | PRG ---
DATE OF SERVICE: 01/16/2019 SUBJECTIVE: This is a 73-year-old female, status post postop day #2 with large incisional hernia repair with mesh, right and left component separation with localization muscle flap and abdominal drains x2. The patient had no overnight events. The patient still has not had a bowel movement, but continues to pass gas. The patient has been tolerating a full liquid diet. The patient with good urinary output. OBJECTIVE: VITAL SIGNS: Temperature 98.4, respirations 14, heart rate 72, SpO2 95% on room air, blood pressure 109/72. GENERAL: The patient is awake, alert, in no distress. HEENT: Unremarkable. Mucous membranes are moist. RESPIRATORY: Equal chest rise and fall. No respiratory distress. CARDIOVASCULAR: Regular rate and rhythm. No pedal edema. ABDOMEN: Soft. Mildly tender. Nondistended. Incision healing. Abdominal drains x2 in place with serosanguineous fluid. NEUROLOGIC: No focal deficits. LABORATORY DATA: Sodium 139, potassium 4.1, chloride 107, CO2 of 27, anion gap 9, BUN 15, creatinine 0.81, estimated GFR 70, glucose 70, calcium 8.4. IMPRESSION: Postop day #2 large incisional hernia repair with mesh. PLAN: We will increase the patient to regular diet as tolerated. The patient is still pending rehab screen. We will discontinue the patient's APPLICATION SUPPORT INTERN fentanyl pump and increase the patient's p.o. pain regimen. The patient was examined with Dr. Jimenez this morning during rounds. We will place the patient on a scheduled bowel regimen. Job ID: [id number]
[2019-01-16] MEDS: HYDROcodone/Acetaminophen 7.5/325 mg Tablet PO PRN ×2 (14:14→20:10)
[2019-01-16] MEDS ORDERED: Gabapentin 300 MG CAP PO SCH (15:00)
[2019-01-16] MEDS: Senokot S 8.6-50 MG TAB PO SCH (20:04)
[2019-01-16] MEDS: Amlodipine 5 MG TAB PO SCH (20:05)
[2019-01-16] MEDS: Amitriptyline HCl 100 MG TAB PO SCH (20:05)
[2019-01-17] MEDS: HYDROcodone/Acetaminophen 7.5/325 mg Tablet PO PRN ×2 (05:09→09:15)
[2019-01-17] MEDS: Levothyroxine Sodium 88 MCG TAB PO SCH (05:10)
[2019-01-17] MEDS: Acetaminophen 500 MG TAB PO SCH ×2 (05:11→08:41)
[2019-01-17 08:00] VITALS: TEMP 98
[2019-01-17] MEDS: Aripiprazole 10 MG TAB PO SCH (08:24)
[2019-01-17] MEDS: Lisinopril/Hydrochlorothiazide 20/25 mg Tablet PO SCH (08:25)
[2019-01-17] MEDS: Senokot S 8.6-50 MG TAB PO SCH (08:25)
[2019-01-17] MEDS ORDERED: Polyethylene Glycol 3350 17 GM Packet PO SCH (09:00)
--- NOTE | 2019-01-17 09:51 | DIS ---
DATE OF ADMISSION: 01/14/2019 DATE OF DISCHARGE: 01/17/2019 ADMITTING DIAGNOSIS: Incisional hernia. DISCHARGE DIAGNOSIS: Incisional hernia. PROCEDURES: Component separation and incisional hernia repair with mesh by Dr. Crowe without complication. CONDITION ON DISCHARGE: Improved. STAFF: Abdiaziz Crowe MD HOSPITAL COURSE: The patient's postop course was she had lots of pain. She was initially on a DIRECTOR BANKING. This was weaned to oral pain medicine. On the day of discharge, she is doing better. Drain care has been instructed upon, and her pain is controlled on oral pain pills. She is discharged home. She will follow up with me in a week for drain removal. Job ID: [id number]
[2019-01-17 11:37] VITALS: BP 113/76
== END 2019-01-17 12:28 | disposition home or self-care (01) ==
LOC: SDC 09:45 → SURG A 16:15
PROVIDERS: ADMIT Surgery; ATTEND Surgery
PROC: 0WUF0JZ Supplement Abdominal Wall with Synthetic Substitute, Open Approach (ICD-10-PCS; principal; 2019-01-14)
PROC: 0KXL0Z6 Transfer Left Abdomen Muscle, Transverse Rectus Abdominis Myocutaneous Flap, Open Approach (ICD-10-PCS; 2019-01-14)
PROC: 0KXK0Z6 Transfer Right Abdomen Muscle, Transverse Rectus Abdominis Myocutaneous Flap, Open Approach (ICD-10-PCS; 2019-01-14)
DX: K43.2 Incisional hernia without obstruction or gangrene (principal); M19.90 Unspecified osteoarthritis, unspecified site; E07.9 Disorder of thyroid, unspecified; F32.9 Major depressive disorder, single episode, unspecified; Z79.899 Other long term (current) drug therapy; Z98.890 Other specified postprocedural states; Z79.83 Long term (current) use of bisphosphonates; Z98.84 Bariatric surgery status; Z90.49 Acquired absence of other specified parts of digestive tract; Z87.891 Personal history of nicotine dependence
CPT/HCPCS: 15756; 49560; 49568; 80048; 96361 ×3; 96365; 96366; 96376; 97116; 97139 ×3; G0378 ×2; J3010 ×2; 36415; J0131; J0690; J1100; J1170; J1885; J2001; J2405; J2550; J2704; J3490

== ENCOUNTER 2019-01-24 23:56 | Inpatient (IN) | payer MEDICARE ==
[2019-01-25 00:27] LABS: #Lymphocytes 0.6 thou/uL (1.20-3.40); #Monocytes 0.6 thou/uL (0.11-0.59); #Neutrophils 7.3 thou/uL (1.40-6.50); %Eosinophils 0.5 % (0.0-10.0); %Lymphocytes 6.9 % (21.0-51.0); %Monocytes 6.9 % (0.0-10.0); %Neutrophils 85.7 % (42.0-75.0); Hemoglobin 11.7 g/dL (12.0-16.0); Mean Corpuscular Hemoglobin 30.9 pg (27.0-31.0); Mean Corpuscular Volume 96.6 fL (78.0-98.0); Mean Platelet Volume 7.7 fL (7.4-10.4); Platelet Count 229 thou/uL (130-400); RBC Distribution Width 12.3 % (11.5-14.5); Red Blood Cell (RBC) Count 3.78 mill/uL (4.20-5.40); White Blood Cell (WBC) Count 8.5 thou/uL (4.8-10.8)
[2019-01-25 01:05] LABS: Bilirubin Negative (Negative); Blood, Urine Trace (Negative); Clarity CLEAR (Clear); Glucose, Urine (Dipstick) Negative (Negative); Leukocyte Moderate (Negative); Nitrite Positive (Negative); Protein, Urine (Dipstick) Negative (Neg-Trace); Specific Gravity, Urine 1.019 (1.002-1.036); Urobilinogen 0.2 mg/dL (0.2-1.0)
[2019-01-25 01:05] LABS: ALT (SGPT) 8 U/L (8-55); AST (SGOT) 14 U/L (5-34); Albumin 3.5 g/dL (3.4-4.8); Alkaline Phosphatase 126 U/L (40-150); Anion Gap 13 mmol/L (10-20); BUN (Urea Nitrogen) 20 mg/dL (9.8-20.1); Bilirubin, Total 0.4 mg/dL (0.2-1.2); Calc. Creatinine Clearance 0 mL/min (70-130); Calcium 8.7 mg/dL (7.8-10.44); Carbon Dioxide 25 mmol/L (23-31); Chloride 102 mmol/L (98-107); Estimated GFR-MDRD 55; Globulin 2.4 g/dL (2.4-3.5); Glucose 126 mg/dL (83-110); Potassium 3.9 mmol/L (3.5-5.1); Protein, Total 5.9 g/dL (6.0-8.3); Sodium 136 mmol/L (136-145)
[2019-01-25 01:06] LABS: Bacteria/HPF 4+ HPF (None Seen); Hyaline Casts/LPF 4-6 HYALINE CAST LPF (0-3 Hyaline); Pathc Cast-AUWi Flag 0.81 (0-2.49); RBC/HPF 0-3 HPF (0-3); Squamous Epithelial None Seen HPF (0-3); WBC/HPF 21-50 HPF (0-3)
[2019-01-25 03:49] VITALS: BMI 34.7
[2019-01-25] MEDS: Sodium Chloride 0.9% 1,000 ML IV SCH ×3 (06:19→21:11)
[2019-01-25] MEDS ORDERED: Cepastat Lozenges 1 LOZ PO PRN (07:09)
[2019-01-25] MEDS ORDERED: Bisacodyl 10 MG SUPP PR PRN (07:09)
[2019-01-25] MEDS ORDERED: Artificial Tears 18 DROP/0.9 ML EA EYE PRN (07:09)
[2019-01-25] MEDS ORDERED: Ondansetron PF 4 MG/2 ML Vial IVP PRN (07:09)
[2019-01-25] MEDS ORDERED: hydrALAZINE 20 MG/ML VIAL SLOW IVP PRN (07:09)
[2019-01-25] MEDS ORDERED: Senokot S 8.6-50 MG TAB PO PRN (07:09)
[2019-01-25] MEDS ORDERED: Loperamide HCl 2 MG CAP PO PRN (07:09)
[2019-01-25] MEDS ORDERED: Loratadine 10 MG TAB PO PRN (07:09)
[2019-01-25] MEDS ORDERED: Zolpidem Tartrate 5 MG TAB PO PRN (07:09)
[2019-01-25] MEDS ORDERED: Eucerin (Mineral Oil/Petrolatum,White) 30 gm Jar TOP PRN (07:09)
[2019-01-25] MEDS ORDERED: Sodium Chloride 0.65% Nasal 44 ML BOT EA NARE PRN (07:09)
[2019-01-25] MEDS ORDERED: HYDROcodone/Acetaminophen 5/325 mg Tablet PO PRN (07:09)
[2019-01-25] MEDS ORDERED: Calcium Carbonate 500 MG ChewTAB PO PRN (07:09)
[2019-01-25] MEDS ORDERED: Ondansetron ODT 4 MG TAB PO PRN (07:09)
[2019-01-25] MEDS ORDERED: Diabetic Tussin 200 MG/10 ML UDCUP PO PRN (07:09)
[2019-01-25] MEDS: cefTRIAXone\\ROCEPHIN 1 GM in Sodium Chloride 0.9% 100 ML IVPB SCH (07:44)
--- NOTE | 2019-01-25 08:02 | RAD ---
SINGLE VIEW CHEST: Date: 01/25/19 COMPARISON: 05/23/16. HISTORY: Fever. FINDINGS: Single view of the chest shows normal sized cardiomediastinal silhouette. Calcified granulomas projec t over both thoraces. There is no evidence of consolidation or pleural effusion. IMPRESSION: No evidence of acute cardiopulmonary disease. POS: [facility]
[2019-01-25] MEDS: Enoxaparin Sodium 40 MG/0.4 ML SYRINGE SC SCH (08:59)
[2019-01-25] MEDS: Aripiprazole 10 MG TAB PO SCH (08:59)
[2019-01-25] MEDS: Multivit, Therapeutic 1 TAB PO SCH (09:00)
[2019-01-25] MEDS ORDERED: CALCIUM CARB CITRATE PO SCH (09:00)
[2019-01-25] MEDS: Calcium Carbonate + Vit D 1 TAB PO SCH (09:00)
[2019-01-25] MEDS ORDERED: VIT D3 PO SCH (09:00)
[2019-01-25] MEDS ORDERED: Non-Formulary Item 1 EACH (Multivitamin [Daily Multiple Vitamin] 1 TAB) PO SCH (09:00)
--- NOTE | 2019-01-25 09:00 | CT ---
PRELIMINARY REPORT/[facility]/EMERGENTY AFTER-HOURS PROCEDURE CT Head Without Contrast EXAM DATE/TIME: 01/25/2019 12:21 AM CLINICAL HISTORY: 73 years old, female; Injury or trauma; Initial encounter; Abrasion; Patient HX: Er 8. Fall, abrassio n to forehead. TECHNIQUE: Imaging protocol: Axial computed tomography images of the head without contrast. COMPARISON: No relevant prior studies available. FINDINGS: Brain: No brain edema. No intracranial hemorrhage. Ventricles: Normal. No ventriculomegaly. Bones/joints: Unremarkable. No acute fracture. Sinuses: Visualized sinuses are unremarkable. No fluid levels. Mastoid air cells: Visualized mastoid air cells are well aerated. No mastoid effusion. Soft tissues: Small right frontal scalp contusion/laceration. IMPRESSION: No acute brain findings. Thank you for allowing us to participate in the care of your patient. Dictated and Authenticated by: Bret Tavarez MD 01/25/2019 12:50 AM Central Time ([place] & [place]) FINAL REPORT EMERGENCY AFTER HOURS CT BRAIN: Date: 01/25/19 FINDINGS/IMPRESSION: I agree with the findings and impression given in the preliminary report per [facility] physician. No evide nce of acute intracranial abnormality. POS: [facility]
[2019-01-25] MEDS: Levothyroxine Sodium 88 MCG TAB PO SCH (09:01)
--- NOTE | 2019-01-25 09:08 | PDOC.GSPN ---
Surgery Progress Note: Subj - Subjective Patient reports: pain well controlled Surgery Progress Note: Obj - Vital signs Vital signs: Vital Signs - Most Recent Temp Pulse Resp BP Pulse Ox 99 F 86 16 102/66 16 L 01/25/19 07:20 01/25/19 07:20 01/25/19 07:20 01/25/19 07:20 01/25/19 08:00 - Physical Exam General: no distress Cardiovascular: regular rate and rhythm Respiratory: clear to auscultation Abdomen: soft, appropriately tender Wound: healing well (Drains serosanguenous) Surgery Progress Note: Results - Labs Result Diagrams: 01/25/19 00:12 01/25/19 00:12 Lab results: Laboratory Results - last 24 hr 01/25/19 01/25/19 01/25/19 00:12 00:12 00:12 WBC 8.5 RBC 3.78 L Hgb 11.7 L Hct 36.5 MCV 96.6 MCH 30.9 MCHC 32.0 RDW 12.3 Plt Count 229 MPV 7.7 Neutrophils % 85.7 H Lymphocytes % 6.9 L Monocytes % 6.9 Eosinophils % 0.5 Basophils % 0.0 Neutrophils # 7.3 H Lymphocytes # 0.6 L Monocytes # 0.6 H Eosinophils # 0.0 Basophils # 0.0 Sodium Potassium Chloride Carbon Dioxide Anion Gap BUN Creatinine Estimated GFR (MDRD) Glucose Lactic Acid Calcium Total Bilirubin AST ALT Alkaline Phosphatase Creatine Kinase 97 Troponin I Less than 0.010 Serum Total Protein Albumin Globulin Albumin/Globulin Ratio Urine Color Urine Clarity Urine pH Ur Specific [place] Urine Protein Urine Glucose (UA) Urine Ketones Urine Blood Urine Nitrite Urine Bilirubin Urine Urobilinogen Ur Leukocyte Esterase Urine RBC Urine WBC Ur Squamous Epith Cells Urine Bacteria Hyaline Casts 01/25/19 01/25/19 01/25/19 00:12 00:12 00:52 WBC RBC Hgb Hct MCV MCH MCHC RDW Plt Count MPV Neutrophils % Lymphocytes % Monocytes % Eosinophils % Basophils % Neutrophils # Lymphocytes # Monocytes # Eosinophils # Basophils # Sodium 136 Potassium 3.9 Chloride 102 Carbon Dioxide 25 Anion Gap 13 BUN 20 Creatinine 0.99 Estimated GFR (MDRD) 55 Glucose 126 H Lactic Acid 0.8 Calcium 8.7 Total Bilirubin 0.4 AST 14 ALT 8 Alkaline Phosphatase 126 Creatine Kinase Troponin I Serum Total Protein 5.9 L Albumin 3.5 Globulin 2.4 Albumin/Globulin Ratio 1.5 Urine Color YELLOW Urine Clarity CLEAR Urine pH 5.0 Ur Specific [place] 1.019 Urine Protein Negative Urine Glucose (UA) Negative Urine Ketones Negative Urine Blood Trace H Urine Nitrite Positive H Urine Bilirubin Negative Urine Urobilinogen 0.2 Ur Leukocyte Esterase Moderate H Urine RBC 0-3 Urine WBC 21-50 H Ur Squamous Epith Cells None Seen Urine Bacteria 4+ H Hyaline Casts 4-6 HYALINE CAST H Surgery Progress Note: A/P - Problem (1) History of incisional hernia repair Current Visit: Yes Code(s): Z98.890 - OTHER SPECIFIED POSTPROCEDURAL STATES; Z87.19 - PERSONAL HISTORY OF OTHER DISEASES OF THE DIGESTIVE SYSTEM Status: Acute - Plan Plan: Doing well -will check thiamine, B12
[2019-01-25] MEDS: Acetaminophen 325 MG TAB PO PRN ×2 (09:09→16:53)
[2019-01-25] MEDS: Saccharomyces boulardii 250 MG CAP PO SCH (09:12)
--- NOTE | 2019-01-25 11:35 | HP ---
PRIMARY CARE PHYSICIAN: Dr. Gavin Ayala. REASON FOR ADMISSION: Mechanical fall, hypotension, sepsis, urinary tract infection. HISTORY OF PRESENT ILLNESS: A 73-year-old female, who was recently hospitalized in our hospital on 01/14/2019. At that time, the patient underwent incisional hernia repair by Dr. Crowe. Subsequently, the patient stayed in the hospital for few days and she was discharged home on 01/17/2019. The patient recalls that during that admission, the patient had couple of days [place] catheter. After discharge, the patient was doing well. The patient was taking all her prescribed medication including blood pressure medication. The patient was feeling little bit weak for last couple of days. She was feeling weak, tired, and sometimes intermittent dizziness. She was also feeling subjective fever since yesterday. She did not measure temperature at home. She was having nausea during daytime. The patient went to sleep and when she tried to wake up last night to go to restroom, she felt dizzy and fell down besides her bed and struck with a nightstand and injured her right-side eyebrow. This patient also injured her left great thumb by holding objects. The patient does not remember anything, but the patient was living with her niece, who called Paramedics, and subsequently, the patient was taken to emergency room. In the emergency room, the patient had a CT of brain, which was negative for any acute process. Chest x-ray was unremarkable. Her routine blood test was also unremarkable, but she was found with urinary tract infection and she was febrile in the emergency room with a temperature maximum at 103. The patient received Rocephin, vancomycin, Zofran, IV fluid, and subsequently, she was admitted to surgical floor. Currently, the patient denies any abdominal pain. She denies any chest pain, cough, or respiratory symptoms. She denies any diarrhea, melena, or hematochezia. REVIEW OF SYSTEMS: CONSTITUTIONAL: Negative for weight loss or gain, ability to conduct usual activities. SKIN: Negative for rash, itching. EYES: Negative for double vision, pain. ENT/MOUTH: Negative for nose bleeding, neck stiffness, pain, tenderness. CARDIOVASCULAR: Negative for palpitations, dyspnea on exertion, orthopnea. RESPIRATORY: Negative for shortness of breath, wheezing, cough, hemoptysis, fever or night sweats. GASTROINTESTINAL: Negative for poor appetite, abdominal pain, heartburn, nausea, vomiting, constipation, or diarrhea. GENITOURINARY: Negative for urgency, frequency, dysuria, nocturia. MUSCULOSKELETAL: Negative for pain, swelling. NEUROLOGIC/PSYCHIATRIC: Negative for anxiety, depression. ALLERGY/IMMUNOLOGIC: Negative for skin rash, bleeding tendency. Please see my HPI for pertinent positive and negative. All other review of systems are reviewed and negative except as mentioned in HPI. PAST MEDICAL HISTORY: 1. History of colon cancer. 2. Hypothyroidism. 3. Hypertension. 4. Recent history of incisional hernia repair. PAST SURGICAL HISTORY: 1. History of gastric bypass. 2. Left hand surgery. 3. Left knee surgery. 4. Right knee surgery. 5. Colon cancer surgery. 6. Cholecystectomy. 7. Incisional hernia repair. PAST PSYCHIATRIC HISTORY: Anxiety and depression. SOCIAL HISTORY: The patient is , lives at home by herself. Her niece is helping after surgery. No history of tobacco, alcohol, or illicit drug abuse. FAMILY HISTORY: No family history of coronary artery disease, stroke, or cancer. ALLERGIES: NO KNOWN DRUG ALLERGY. EMERGENCY ROOM COURSE: The patient received morphine 4 mg, Zofran 8 mg, Rocephin 1 g, vancomycin 1 g, and Tylenol 1 g. CURRENT HOME MEDICATIONS: 1. Zofran 4 mg p.o. q.6 hourly p.r.n. 2. Motrin 800 mg q.8 hourly p.r.n. 3. Tylenol 650 mg p.r.n. 4. Amitriptyline 200 mg p.o. at bedtime. 5. Amlodipine 5 mg p.o. at bedtime. 6. Abilify 5 mg p.o. daily. 7. Calcium with vitamin D 1 tablet p.o. daily. 8. [place] 7.5 q.6 hourly p.r.n. 9. Synthroid 88 mcg p.o. daily. 10. Prinzide 20/25 one tablet daily. 11. Multivitamin 1 tablet p.o. daily. 12. Protonix 40 mg p.o. daily. 13. Zoloft 100 mg p.o. daily. PHYSICAL EXAMINATION: VITAL SIGNS: On arrival, blood pressure 111/71, pulse 102, respiratory rate 20, temperature 103, saturation 95% on room air. Weight 95.2 kg. GENERAL: The patient is currently alert, awake, in no obvious acute distress. HEENT: Head; the patient does have 0.5 cm laceration to right side of her right eyebrow as well as very little laceration to right side of lower lip. Eyes; pupils are round, reactive to light. Extraocular muscle intact. ENT; oropharynx within normal limits. Moist mucous membranes. No oral lesion. No pharyngeal erythema. No exudate. NECK: Supple. No JVD. No thyromegaly. No carotid bruit. LUNGS: Clear to auscultation without any rhonchi or rales. CARDIAC: S1, S2 regular. Slight tachycardia. No murmur. No gallop. No rub. ABDOMEN: The patient does have 2 MONISHA drains on her abdomen. Surgical site is clean and healthy. No peritoneal sign. No guarding. No rigidity. No rebound. BACK: Unremarkable. No CVA tenderness. EXTREMITIES: Upper extremity, passive movement of all joints are normal. Lower extremity, no edema. Good distal pulsation. SKIN: The patient does have some bruise over great thumb on the left side, otherwise no new rash. HEMATOLOGICAL: No lymphadenopathy. NEUROLOGIC: Nonfocal examination. The patient moves all 4 limbs. SIGNIFICANT LABORATORY DATA: EKG showing sinus tachycardia. CT of brain based on my review, no acute intracranial process. Chest x-ray based on my review, no acute cardiopulmonary process. CBC: WBC 8.5, hemoglobin 11.7, platelets 229. BMP: Sodium 136, potassium 3.9, chloride 102, carbon dioxide 25, BUN 20, creatinine 0.99, glucose 126, and calcium 8.7. Lactic acid 0.8. LFT: AST 14, ALT 8, alkaline phosphatase 126, albumin 3.5. Troponin negative. CK 97. Urinalysis suggestive of UTI with nitrite positive and leukocyte esterase moderate. ASSESSMENT AND PLAN: 1. Mechanical fall. I am suspecting this patient's fall is likely related with orthostatic hypotension. The patient was taking her antihypertensive medication and when she arrived to emergency room, her blood pressure was on lower side, probably orthostatic hypotension might have contributed to her fall and subsequently, she had mild laceration over eyebrow and lower lip. Her CT of brain is negative. This patient will need PT/OT evaluation and discharge planning. 2. Sepsis. The patient had 103 fever. She was tachycardic. She does not have any leukocytosis, but her source of infection is most likely urinary tract. Intraabdominal process is unlikely. The patient is kept on broad-spectrum antibiotic therapy with Rocephin and vancomycin. We will follow up on blood and urine culture result. 3. Urinary tract infection, likely related with recent Ll[place] catheterization during perioperative period. The patient does have significant urinalysis abnormality, though symptoms are not prominent, but she has fever and most likely source is urinary tract infection. We will continue with Rocephin and vancomycin and change antibiotic therapy accordingly. 4. Recent history of incisional hernia repair. We will consult Dr. Crowe to come and look at her. She does have 2 MONISHA drains, and surgical site is clean and healthy. Intraabdominal process infection source is less likely, but we will defer more investigation to him. 5. Laceration of face. The patient will need just routine wound care. 6. Anemia, normocytic normochromic. 7. Anxiety and depression. We will resume the patient's home medication with amitriptyline, Zoloft, and Abilify. 8. Hypertension. Currently, has low blood pressure and that is why we will hold on antihypertensive medication, and when blood pressure improves, at that time, we will resume. 9. Gastroesophageal reflux disease. We will continue Protonix 40 mg p.o. daily. 10. Hypothyroidism. We will continue Synthroid 88 mcg p.o. daily. 11. Deep venous thrombosis prophylaxis, on Lovenox 40 mg subcu daily. 12. Gastrointestinal prophylaxis, on Protonix 40 mg p.o. daily. CODE STATUS: I spoke with the patient about code status and the patient is DNR. She does not want to try even 1 time to do CPR or resuscitation in case of cardiopulmonary arrest and her son is a decision maker. DISPOSITION PLAN: Based on clinical course. Plan of care discussed with the patient in detail. Job ID: [id number]
[2019-01-25] MEDS ORDERED: HYDROcodone/Acetaminophen 7.5/325 mg Tablet PO PRN (13:27)
[2019-01-25] MEDS: HYDROcodone/Acetaminophen 7.5/325 mg Tablet PO PRN ×2 (14:34→21:20)
[2019-01-25] MEDS: Amitriptyline HCl 100 MG TAB PO SCH (21:11)
[2019-01-25] MEDS: Amlodipine 5 MG TAB PO SCH (21:12)
[2019-01-26] MEDS: HYDROcodone/Acetaminophen 7.5/325 mg Tablet PO PRN ×3 (05:56→18:06)
[2019-01-26 08:10] LABS: #Eosinphils 0.1 thou/uL (0.0-0.7); #Monocytes 0.5 thou/uL (0.11-0.59); #Neutrophils 7.3 thou/uL (1.40-6.50); %Basophils 0.2 % (0.0-1.0); %Eosinophils 1.5 % (0.0-10.0); %Lymphocytes 11.2 % (21.0-51.0); %Monocytes 5.4 % (0.0-10.0); %Neutrophils 81.6 % (42.0-75.0); Hemoglobin 10.6 g/dL (12.0-16.0); Mean Corpuscular HGB CONC 32.8 g/dL (32.0-36.0); Mean Corpuscular Hemoglobin 32.1 pg (27.0-31.0); Mean Corpuscular Volume 97.7 fL (78.0-98.0); Mean Platelet Volume 7.8 fL (7.4-10.4); Platelet Count 195 thou/uL (130-400); RBC Distribution Width 12.4 % (11.5-14.5)
[2019-01-26] MEDS: cefTRIAXone\\ROCEPHIN 1 GM in Sodium Chloride 0.9% 100 ML IVPB SCH (08:24)
[2019-01-26] MEDS: Multivit, Therapeutic 1 TAB PO SCH (08:26)
[2019-01-26] MEDS: Calcium Carbonate + Vit D 1 TAB PO SCH (08:26)
[2019-01-26] MEDS: Aripiprazole 10 MG TAB PO SCH (08:26)
[2019-01-26] MEDS: Saccharomyces boulardii 250 MG CAP PO SCH (08:27)
[2019-01-26] MEDS: Enoxaparin Sodium 40 MG/0.4 ML SYRINGE SC SCH (08:27)
[2019-01-26] MEDS: Levothyroxine Sodium 88 MCG TAB PO SCH (08:27)
[2019-01-26 08:29] LABS: Anion Gap 11 mmol/L (10-20); BUN (Urea Nitrogen) 15 mg/dL (9.8-20.1); Calc. Creatinine Clearance 110 mL/min (70-130); Carbon Dioxide 24 mmol/L (23-31); Chloride 107 mmol/L (98-107); Estimated GFR-MDRD 82; Glucose 95 mg/dL (83-110); Potassium 3.7 mmol/L (3.5-5.1); Sodium 138 mmol/L (136-145)
--- NOTE | 2019-01-26 10:06 | PDOC.GSPN ---
Surgery Progress Note: Subj - Subjective Patient reports: no new complaints, feels better Surgery Progress Note: Obj - Vital signs Vital signs: Vital Signs - Most Recent Temp Pulse Resp BP Pulse Ox 98.1 F 85 18 134/76 92 L 01/26/19 08:16 01/26/19 08:16 01/26/19 08:16 01/26/19 08:16 01/26/19 08:16 - Physical Exam General: no distress Abdomen: soft, non tender Wound: healing well (Drains serosanguenous) Surgery Progress Note: Results - Labs Result Diagrams: 01/26/19 07:37 01/26/19 07:37 Lab results: Laboratory Results - last 24 hr 01/26/19 01/26/19 07:37 07:37 WBC 9.0 RBC 3.30 L Hgb 10.6 L Hct 32.3 L MCV 97.7 MCH 32.1 H MCHC 32.8 RDW 12.4 Plt Count 195 MPV 7.8 Neutrophils % 81.6 H Lymphocytes % 11.2 L Monocytes % 5.4 Eosinophils % 1.5 Basophils % 0.2 Neutrophils # 7.3 H Lymphocytes # 1.0 L Monocytes # 0.5 Eosinophils # 0.1 Basophils # 0.0 Sodium 138 Potassium 3.7 Chloride 107 Carbon Dioxide 24 Anion Gap 11 BUN 15 Creatinine 0.70 Estimated GFR (MDRD) 82 Glucose 95 Calcium 8.0 Surgery Progress Note: A/P - Problem (1) History of incisional hernia repair Current Visit: Yes Code(s): Z98.890 - OTHER SPECIFIED POSTPROCEDURAL STATES; Z87.19 - PERSONAL HISTORY OF OTHER DISEASES OF THE DIGESTIVE SYSTEM Status: Acute - Plan Plan: UTI s/p incisional hernia repair -dc with drains -will defer antibiotics to hospitalist -return to my office in one week for drain removal -B12 normal. I will follow up on thiamine level
--- NOTE | 2019-01-26 11:28 | PDOC.PN ---
- Subjective Encounter Start Date: 01/26/19 Encounter Start Time: 09:00 -: old records requested/rev Patient seen and examined. No new complaints. No overnight events - Objective Resuscitation Status - Order Detail: 01/25/19 10:36 Resuscitation Status Routine Resuscitation Status: DNAR: NO Resuscitation Discussed with: discussed with pt in detail MAR Reviewed: Yes Vital Signs & Weight: Vital Signs (12 hours) Temp Pulse Resp BP Pulse Ox 01/26/19 08:16 98.1 F 85 18 134/76 92 L 01/26/19 08:15 92 L 01/26/19 04:00 98.1 F 76 15 101/62 96 01/26/19 00:00 97.9 F 83 15 100/62 94 L Weight Weight 208 lb 9.6 oz I&O: 01/25/19 01/26/19 01/27/19 06:59 06:59 06:59 Intake Total 580 4980 Output Total 260 235 Balance 320 4745 Result Diagrams: 01/26/19 07:37 01/26/19 07:37 Phys Exam - Physical Examination Constitutional: NAD HEENT: PERRLA, moist MMs, sclera anicteric Neck: no JVD, supple Respiratory: no wheezing, no rales, no rhonchi Cardiovascular: RRR, no significant murmur, no rub Gastrointestinal: soft, non-tender, no distention, positive bowel sounds surgical site clean, drain+ Musculoskeletal: no edema, pulses present Neurological: non-focal, normal sensation, moves all 4 limbs Lymphatic: no nodes Psychiatric: normal affect, A&O x 3 Skin: no rash, normal turgor Dx/Plan (1) UTI (urinary tract infection) Status: Acute (2) Sepsis Code(s): A41.9 - SEPSIS, UNSPECIFIED ORGANISM Status: Acute (3) Fall Code(s): W19.XXXA - UNSPECIFIED FALL, INITIAL ENCOUNTER Status: Acute (4) History of incisional hernia repair Code(s): Z98.890 - OTHER SPECIFIED POSTPROCEDURAL STATES; Z87.19 - PERSONAL HISTORY OF OTHER DISEASES OF THE DIGESTIVE SYSTEM Status: Acute (5) Laceration of face Code(s): S01.81XA - LACERATION W/O FOREIGN BODY OF OTH PART OF HEAD, INIT ENCNTR Status: Acute (6) Anemia, normocytic normochromic Code(s): D64.9 - ANEMIA, UNSPECIFIED Status: Chronic (7) Anxiety and depression Code(s): F41.9 - ANXIETY DISORDER, UNSPECIFIED; F32.9 - MAJOR DEPRESSIVE DISORDER, SINGLE EPISODE, UNSPECIFIED Status: Chronic (8) GERD (gastroesophageal reflux disease) Code(s): K21.9 - GASTRO-ESOPHAGEAL REFLUX DISEASE WITHOUT ESOPHAGITIS Status: Chronic (9) Hypertension Code(s): I10 - ESSENTIAL (PRIMARY) HYPERTENSION Status: Chronic (10) Hypothyroidism Code(s): E03.9 - HYPOTHYROIDISM, UNSPECIFIED Status: Chronic (11) Obesity (BMI 30.0-34.9) Code(s): E66.9 - OBESITY, UNSPECIFIED Status: Chronic - Plan cont current plan of care, continue antibiotics, PT/OT * continue rocephin and levaquin * expecting discharge tomorrow * general surgery recommendation appreciated * DC IVF * medication reviewed as below * symptomatic treatment. Review of Systems - Review of Systems ENT: negative: Ear Pain, Ear Discharge, Nose Pain, Nose Discharge, Nose Congestion, Mouth Pain, Mouth Swelling, Throat Pain, Throat Swelling, Other Respiratory: negative: Cough, Dry, Shortness of Breath, Hemoptysis, SOB with Excertion, Pleuritic Pain, Sputum, Wheezing Cardiovascular: negative: chest pain, palpitations, orthopnea, paroxysmal nocturnal dyspnea, edema, light headedness, other Gastrointestinal: negative: Nausea, Vomiting, Abdominal Pain, Diarrhea, Constipation, Melena, Hematochezia, Other Genitourinary: negative: Dysuria, Frequency, Incontinence, Hematuria, Retention , Other Musculoskeletal: negative: Neck Pain, Shoulder Pain, Arm Pain, Back Pain, Hand Pain, Leg Pain, Foot Pain, Other Skin: negative: Rash, Lesions, [place], Bruising, Other - Medications/Allergies Allergies/Adverse Reactions: Allergies Allergy/AdvReac Type Severity Reaction Status Date / Time No Known Allergies Allergy Verified 01/04/19 16:22 Medications: Current Medications Acetaminophen (Tylenol) 650 mg PO Q4H PRN PRN Reason: Headache/Fever/Mild Pain (1-3) Last Admin: 01/25/19 16:53 Dose: 650 mg Hydrocodone Bitart/Acetaminophen ([place] 7.5/325) 1 tab PO Q6H PRN PRN Reason: Moderate Pain (4-6) Hydrocodone Bitart/Acetaminophen ([place] 7.5/325) 2 tab PO Q6H PRN PRN Reason: Severe Pain (7-10) Last Admin: 01/26/19 05:56 Dose: 2 tab Amitriptyline HCl (Elavil) 200 mg PO [facility] Last Admin: 01/25/19 21:11 Dose: 100 mg Amlodipine Besylate (Norvasc) 5 mg PO [facility] Last Admin: 01/25/19 21:12 Dose: 5 mg [facility]ip[facility] ([facility]ilify) [facility] Last Admin: 01/26/19 08:26 Dose: 5 mg Artificial Tears (Tears Naturale) 2 drop EA EYE PRN PRN PRN Reason: Dry Eyes Bisacodyl (Dulcolax) 10 mg RI DAILYPRN PRN PRN Reason: Constipation Calcium Carbonate (Tums) 1,000 mg PO Q4H PRN PRN Reason: Heartburn or Indigestion Calcium/Vitamin D (Caltrate 600 + Vit D) 1 tab PO DAILY [facility] Last Admin: 01/26/19 08:26 Dose: 1 tab Enoxaparin Sodium (Lovenox) 40 mg SC 0900 [facility] Last Admin: 01/26/19 08:27 Dose: 40 mg Guaifenesin (Robitussin Sf) 200 mg PO Q4H PRN PRN Reason: Cough Hydralazine HCl (Apresoline) 10 mg SLOW IVP Q4H PRN PRN Reason: SBP > 180 and HR < 70 Sodium Chloride (Normal Saline 0.9%) 1,000 mls @ 100 mls/hr IV .Q10H [facility] Last Admin: 01/25/19 21:11 Dose: 1,000 mls Ceftriaxone Sodium 1 gm/ (Sodium Chloride) 100 mls @ 200 mls/hr IVPB Q24HR [facility] Last Admin: 01/26/19 08:24 Dose: 100 mls Thiamine HCl 100 mg/ Sodium (Chloride) 51 mls @ 100 mls/hr IVPB Q24HR [facility] Last Admin: 01/26/19 10:41 Dose: 51 mls Levothyroxine Sodium (Synthroid) 88 [facility] [place] Last Admin: 01/26/19 08:27 Dose: 88 mcg Loperamide HCl (Imodium) 2 mg PO PRN PRN PRN Reason: Diarrhea/Loose Stools Loratadine (Claritin) 10 mg PO DAILYPRN PRN PRN Reason: Sinus Symptoms Mineral Oil/White Petrolatum (Eucerin Cream) 0 gm TOP BIDPRN PRN PRN Reason: Dry Skin Miscellaneous Medication (Pharmacy To Dose) 1 each IVPB ASDIR [facility] Multivitamins (Theragran) 1 tab PO DAILY [facility] Last Admin: 01/26/19 08:26 Dose: 1 tab Ondansetron HCl (Zofran Odt) 4 mg PO Q6H PRN PRN Reason: Nausea/Vomiting Ondansetron HCl (Zofran) 4 mg IVP Q6H PRN PRN Reason: Nausea/Vomiting Pantoprazole Sodium (Protonix) 40 mg PO [facility] Last Admin: 01/26/19 08:27 Dose: 40 mg Saccharomyces Boulardii (Florastor) 250 mg PO DAILY [facility] Last Admin: 01/26/19 08:27 Dose: 250 mg Senna/Docusate Sodium (Senokot S) 2 tab PO BID PRN PRN Reason: Constipation Sertraline HCl (Zoloft) [facility] [place] Last Admin: 01/26/19 08:27 Dose: 100 mg Sodium Chloride ([place] Nasal [place] 0.65%) 0 ml EA NARE QIDPRN PRN PRN Reason: Nasal Congestion Sodium Chloride (Flush - Normal Saline) 10 ml IVF Q12HR [facility] Last Admin: 01/26/19 08:29 Dose: Not Given Sodium Chloride (Flush - Normal Saline) 10 ml IVF PRN PRN PRN Reason: Saline Flush Throat Lozenges (Cepastat Lozenges) 1 claudia PO Q2H PRN PRN Reason: Sore Throat Zolpidem Tartrate (Ambien) 5 mg PO HSPRN PRN PRN Reason: Insomnia
[2019-01-26] MEDS: Amitriptyline HCl 100 MG TAB PO SCH (20:18)
[2019-01-26] MEDS: Amlodipine 5 MG TAB PO SCH (20:19)
[2019-01-27 09:12] VITALS: BP 144/83; TEMP 98
[2019-01-27] MEDS: Enoxaparin Sodium 40 MG/0.4 ML SYRINGE SC SCH (09:14)
[2019-01-27] MEDS: Aripiprazole 10 MG TAB PO SCH (09:14)
[2019-01-27] MEDS: Calcium Carbonate + Vit D 1 TAB PO SCH (09:14)
[2019-01-27] MEDS: Saccharomyces boulardii 250 MG CAP PO SCH (09:15)
[2019-01-27] MEDS: Multivit, Therapeutic 1 TAB PO SCH (09:15)
[2019-01-27] MEDS: Levothyroxine Sodium 88 MCG TAB PO SCH (09:15)
[2019-01-27] MEDS: HYDROcodone/Acetaminophen 7.5/325 mg Tablet PO PRN (09:20)
[2019-01-27] MEDS: cefTRIAXone\\ROCEPHIN 1 GM in Sodium Chloride 0.9% 100 ML IVPB SCH (09:20)
--- NOTE | 2019-01-27 10:00 | PDOC.PN ---
- Subjective Encounter Start Date: 01/27/19 Encounter Start Time: 08:20 Patient seen and examined. No new complaints. No overnight events - Objective Resuscitation Status - Order Detail: 01/25/19 10:36 Resuscitation Status Routine Resuscitation Status: DNAR: NO Resuscitation Discussed with: discussed with pt in detail MAR Reviewed: Yes Vital Signs & Weight: Vital Signs (12 hours) Temp Pulse Resp BP Pulse Ox 01/27/19 08:30 98 F 91 16 144/83 H 96 01/27/19 04:18 97.9 F 78 16 122/75 96 01/27/19 00:56 97.6 F 73 16 110/69 98 01/26/19 22:25 98.1 F 77 16 131/81 96 Weight Weight 208 lb 9.6 oz I&O: 01/26/19 01/27/19 01/28/19 06:59 06:59 06:59 Intake Total 4980 1800 Output Total 235 155 Balance 4745 1645 Result Diagrams: 01/26/19 07:37 01/26/19 07:37 Phys Exam - Physical Examination Constitutional: NAD HEENT: PERRLA, moist MMs, sclera anicteric Neck: no JVD, supple Respiratory: no wheezing, no rales, no rhonchi Cardiovascular: RRR, no significant murmur, no rub Gastrointestinal: soft, non-tender, no distention, positive bowel sounds drain+ Musculoskeletal: no edema, pulses present Neurological: non-focal, normal sensation, moves all 4 limbs Lymphatic: no nodes Psychiatric: normal affect, A&O x 3 Skin: no rash, normal turgor Dx/Plan (1) UTI (urinary tract infection) Status: Acute (2) Sepsis Code(s): A41.9 - SEPSIS, UNSPECIFIED ORGANISM Status: Acute (3) Fall Code(s): W19.XXXA - UNSPECIFIED FALL, INITIAL ENCOUNTER Status: Acute (4) History of incisional hernia repair Code(s): Z98.890 - OTHER SPECIFIED POSTPROCEDURAL STATES; Z87.19 - PERSONAL HISTORY OF OTHER DISEASES OF THE DIGESTIVE SYSTEM Status: Acute (5) Laceration of face Code(s): S01.81XA - LACERATION W/O FOREIGN BODY OF OTH PART OF HEAD, INIT ENCNTR Status: Acute (6) Anemia, normocytic normochromic Code(s): D64.9 - ANEMIA, UNSPECIFIED Status: Chronic (7) Anxiety and depression Code(s): F41.9 - ANXIETY DISORDER, UNSPECIFIED; F32.9 - MAJOR DEPRESSIVE DISORDER, SINGLE EPISODE, UNSPECIFIED Status: Chronic (8) GERD (gastroesophageal reflux disease) Code(s): K21.9 - GASTRO-ESOPHAGEAL REFLUX DISEASE WITHOUT ESOPHAGITIS Status: Chronic (9) Hypertension Code(s): I10 - ESSENTIAL (PRIMARY) HYPERTENSION Status: Chronic (10) Hypothyroidism Code(s): E03.9 - HYPOTHYROIDISM, UNSPECIFIED Status: Chronic (11) Obesity (BMI 30.0-34.9) Code(s): E66.9 - OBESITY, UNSPECIFIED Status: Chronic - Plan cont current plan of care, continue antibiotics * medication reviewed as below * symptomatic treatment * see discharge rachid. Review of Systems - Review of Systems ENT: negative: Ear Pain, Ear Discharge, Nose Pain, Nose Discharge, Nose Congestion, Mouth Pain, Mouth Swelling, Throat Pain, Throat Swelling, Other Respiratory: negative: Cough, Dry, Shortness of Breath, Hemoptysis, SOB with Excertion, Pleuritic Pain, Sputum, Wheezing Cardiovascular: negative: chest pain, palpitations, orthopnea, paroxysmal nocturnal dyspnea, edema, light headedness, other Gastrointestinal: negative: Nausea, Vomiting, Abdominal Pain, Diarrhea, Constipation, Melena, Hematochezia, Other Genitourinary: negative: Dysuria, Frequency, Incontinence, Hematuria, Retention , Other Musculoskeletal: negative: Neck Pain, Shoulder Pain, Arm Pain, Back Pain, Hand Pain, Leg Pain, Foot Pain, Other Skin: negative: Rash, Lesions, Donovan, Bruising, Other - Medications/Allergies Allergies/Adverse Reactions: Allergies Allergy/AdvReac Type Severity Reaction Status Date / Time No Known Allergies Allergy Verified 01/04/19 16:22 Medications: Current Medications Acetaminophen (Tylenol) 650 mg PO Q4H PRN PRN Reason: Headache/Fever/Mild Pain (1-3) Last Admin: 01/25/19 16:53 Dose: 650 mg Hydrocodone Bitart/Acetaminophen ([place] 7.5/325) 1 tab PO Q6H PRN PRN Reason: Moderate Pain (4-6) Hydrocodone Bitart/Acetaminophen ([place] 7.5/325) 2 tab PO Q6H PRN PRN Reason: Severe Pain (7-10) Last Admin: 01/27/19 09:20 Dose: 2 tab Amitriptyline HCl (Elavil) 200 mg PO [facility] Last Admin: 01/26/19 20:18 Dose: 200 mg Amlodipine Besylate (Norvasc) 5 mg PO HS [facility] Last Admin: 01/26/19 20:19 Dose: 5 mg [facility]ip[facility]) [facility] Last Admin: 01/27/19 09:14 Dose: 5 mg Artificial Tears (Tears Naturale) 2 drop EA EYE PRN PRN PRN Reason: Dry Eyes Bisacodyl (Dulcolax) 10 mg SD DAILYPRN PRN PRN Reason: Constipation Calcium Carbonate (Tums) 1,000 mg PO Q4H PRN PRN Reason: Heartburn or Indigestion Calcium/Vitamin D (Caltrate 600 + Vit D) 1 tab PO DAILY [facility] Last Admin: 01/27/19 09:14 Dose: 1 tab Enoxaparin Sodium (Lovenox) 40 mg SC 0900 [facility] Last Admin: 01/27/19 09:14 Dose: 40 mg Guaifenesin (Robitussin Sf) 200 mg PO Q4H PRN PRN Reason: Cough Hydralazine HCl (Apresoline) 10 mg SLOW IVP Q4H PRN PRN Reason: SBP > 180 and HR < 70 Ceftriaxone Sodium 1 gm/ (Sodium Chloride) 100 mls @ 200 mls/hr IVPB Q24HR [facility] Last Admin: 01/27/19 09:20 Dose: 100 mls Thiamine HCl 100 mg/ Sodium (Chloride) 51 mls @ 100 mls/hr IVPB Q24HR [facility] Last Admin: 01/27/19 09:21 Dose: 51 mls Levothyroxine Sodium (Synthroid) 88 mcg [facility] Last Admin: 01/27/19 09:15 Dose: 88 mcg Loperamide HCl (Imodium) 2 mg PO PRN PRN PRN Reason: Diarrhea/Loose Stools Loratadine (Claritin) 10 mg PO DAILYPRN PRN PRN Reason: Sinus Symptoms Mineral Oil/White Petrolatum (Eucerin Cream) 0 gm TOP BIDPRN PRN PRN Reason: Dry Skin Multivitamins (Theragran) 1 tab PO DAILY [facility] Last Admin: 01/27/19 09:15 Dose: 1 tab Ondansetron HCl (Zofran Odt) 4 mg PO Q6H PRN PRN Reason: Nausea/Vomiting Ondansetron HCl (Zofran) 4 mg IVP Q6H PRN PRN Reason: Nausea/Vomiting Pantoprazole Sodium (Protonix) 40 [facility] Last Admin: 01/27/19 09:15 Dose: 40 mg Saccharomyces Boulardii (Florastor) 250 mg PO DAILY [facility] Last Admin: 01/27/19 09:15 Dose: 250 mg Senna/Docusate Sodium (Senokot S) 2 tab PO BID PRN PRN Reason: Constipation Sertraline HCl (Zoloft) 100 mg PO [facility] Last Admin: 01/27/19 09:15 Dose: 100 mg Sodium Chloride ([place] Nasal [place] 0.65%) 0 ml EA NARE QIDPRN PRN PRN Reason: Nasal Congestion Sodium Chloride (Flush - Normal Saline) 10 ml IVF Q12HR [facility] Last Admin: 01/27/19 09:15 Dose: 10 ml Sodium Chloride (Flush - Normal Saline) 10 ml IVF PRN PRN PRN Reason: Saline Flush Throat Lozenges (Cepastat Lozenges) 1 claudia PO Q2H PRN PRN Reason: Sore Throat Zolpidem Tartrate (Ambien) 5 mg PO HSPRN PRN PRN Reason: Insomnia
--- NOTE | 2019-01-27 11:24 | DIS ---
DATE OF ADMISSION: 01/25/2019 DATE OF DISCHARGE: 01/27/2019 PRIMARY CARE PHYSICIAN: Gavin Ayala MD DISCHARGE DISPOSITION: Home. PRIMARY DISCHARGE DIAGNOSES: 1. Sepsis, resolved. 2. Urinary tract infection. 3. Mechanical fall due to orthostatic hypotension. 4. Laceration of face. 5. History of incisional hernia repair. SECONDARY DISCHARGE DIAGNOSES: Obesity with BMI of 34, hypertension, hypothyroidism, gastroesophageal reflux disease, anxiety and depression, normocytic normochromic anemia. PRIMARY PROCEDURE/OPERATION: None. RADIOLOGICAL INVESTIGATION: CT brain negative. Chest x-ray normal. SIGNIFICANT LABORATORY DATA: Hemoglobin 10.6, creatinine 0.70. LFT normal. Cardiac troponin negative. Urinalysis suggestive of UTI. Urine culture grew E coli. Blood culture negative. DISCHARGE MEDICATIONS: 1. Ciprofloxacin 500 mg p.o. b.i.d. for 5 more days. 2. The patient will continue following medication;. a. Amitriptyline 200 mg p.o. at bedtime. b. Amlodipine 5 mg p.o. at bedtime. c. Abilify 5 mg daily. d. Calcium with vitamin D 1 tablet p.o. daily. e. Levothyroxine 88 mcg p.o. daily. f. Prinzide 20/25 one tablet daily. g. Multivitamin one tablet p.o. daily. h. Protonix 40 mg p.o. daily. i. Zoloft 100 mg p.o. daily. j. Folic acid 1 mg p.o. daily. k. Thiamine 100 mg p.o. daily. l. Vitamin B12 1000 mcg p.o. daily. m. Florastor 250 mg p.o. daily for 5 days. CONTRAINDICATION: None. CODE STATUS: DNR. INPATIENT PRESS BRAKE OPERATOR: Dr. Crowe. TEST RESULTS PENDING ON DISCHARGE: None. ALLERGIES: NO KNOWN DRUG ALLERGIES. DISCHARGE PLAN: Post hospital, the patient will follow up with Dr. Crowe for a drain removal. HOSPITAL COURSE: A 73-year-old female with above-mentioned medical problem, who was admitted by me. Please see my H and P for further details. This patient had recently an incisional hernia repair. At that time, the patient had a [place] catheter placed. Subsequently, patient was discharged from hospital. She was doing well up until couple of days ago when she started having fever and urinary tract infection symptoms. She was feeling weak and dizzy at home with subjective fever. The patient also had mechanical fall, which was presumably from orthostatic hypotension. The patient had minor laceration over eyebrow and the lip. The patient did not have any problem with CT brain. Chest x-ray was normal. Her urinalysis was consistent with UTI, which was attributed to be due to recent [place] catheterization. Her urine culture grew E coli and based on culture and sensitivity result, on discharge we changed to Cipro. While in hospital, she was given Rocephin and vancomycin, but Dr. Crowe was consulted as the patient was having drain in place, but the patient's surgical site was clean and healthy any she is recovering from that. The patient will follow up with Dr. Crowe for drain removal. Upon discharge, we started B12, folic acid, and thiamine therapy. All new medication prescription given. Rest of medications she will continue as per previous. I have seen and examined the patient at bedside today. Please see my progress note from today for further details. Job ID: [id number]
== END 2019-01-27 11:35 | disposition home or self-care (01) | DRG 698 ==
LOC: ERS 23:56 → SURG B 01-25 01:45
PROVIDERS: ADMIT Family Medicine; ATTEND Family Medicine
DX: T83.511A Infection and inflammatory reaction due to indwelling urethral catheter, initial encounter (principal); A41.51 Sepsis due to Escherichia coli [E. coli]; N39.0 Urinary tract infection, site not specified; Z66 Do not resuscitate; E03.9 Hypothyroidism, unspecified; I10 Essential (primary) hypertension; Z90.49 Acquired absence of other specified parts of digestive tract; F41.9 Anxiety disorder, unspecified; F32.9 Major depressive disorder, single episode, unspecified; D64.9 Anemia, unspecified; K21.9 Gastro-esophageal reflux disease without esophagitis; E66.9 Obesity, unspecified; I95.1 Orthostatic hypotension; S01.119A Laceration without foreign body of unspecified eyelid and periocular area, initial encounter; S01.511A Laceration without foreign body of lip, initial encounter; B96.20 Unspecified Escherichia coli [E. coli] as the cause of diseases classified elsewhere; W19.XXXA Unspecified fall, initial encounter; Z68.34 Body mass index [BMI] 34.0-34.9, adult; Z79.899 Other long term (current) drug therapy; Z85.038 Personal history of other malignant neoplasm of large intestine; Z98.890 Other specified postprocedural states; Z87.19 Personal history of other diseases of the digestive system; Z98.84 Bariatric surgery status
CPT/HCPCS: 12013; 36415; 51701; 70450; 71045; 80048; 80053; 81003; 81015; 82550; 82607; 83605; 84425; 84484; 85025; 87040; 87077; 87086; 87186; 93005; 96365; 96367; 96375; A4353; J0696; J1650; J3370; J3411; J3490; J7050

== ENCOUNTER 2020-03-30 10:42 | Outpatient (CLI) | payer MEDICARE ==
--- NOTE | 2020-03-30 12:58 | MRI ---
EXAM: MRI of the brain without and with contrast HISTORY: Confusion and memory loss COMPARISON: None TECHNIQUE: Multiplanar multisequence MR images were obtained of the brain without and with IV contras t. FINDINGS: Scattered foci of high T2/FLAIR signal in the subcortical and periventricular white matter are likely secondary to small vessel ischemic disease. No restricted diffusion. No abnormal enhancement. No hydronephrosis. No extra-axial fluid collection or intracranial hemorrhage. The expected flow voids are present. Corpus callosum, pituitary, and craniocervical junction are within normal limits. The calvarium and overlying soft tissues are unremarkable. The paranasal sinuses and mastoid air cells are well aerated. IMPRESSION: No evidence of acute intracranial abnormality.
== END 2020-03-30 10:43 | disposition home or self-care (01) ==
LOC: SCSMRI 10:42
PROVIDERS: ATTEND Family Medicine
DX: R41.0 Disorientation, unspecified (principal); R42 Dizziness and giddiness
CPT/HCPCS: 70553; 82565

== ENCOUNTER 2023-04-23 09:40 | Outpatient (CLI) | payer MEDICARE | END 2023-04-23 09:41 | disposition home or self-care (01) | LOC: NM 09:40 | PROVIDERS: ATTEND Family Medicine | DX: R79.89 Other specified abnormal findings of blood chemistry (principal); R06.02 Shortness of breath | CPT/HCPCS: 71046; 78451; A9540 ==